=== PATIENT | male | born 2000 | race Caucasian/White ===

== ENCOUNTER 2019-08-22 10:53 | Inpatient (IN) | payer BC ==
[2019-08-22] MEDS ORDERED: Ondansetron PF 4 MG/2 ML Vial ONE (11:03)
[2019-08-22] MEDS ORDERED: Ondansetron ODT 4 MG TAB ONE (11:04)
[2019-08-22] MEDS ORDERED: Midazolam HCl 5 mg/ml Vial ONE ×2 (12:09→12:15)
[2019-08-22] MEDS ORDERED: Haloperidol Lactate 5 MG/ML VIAL ONE (12:22)
[2019-08-22] MEDS ORDERED: diphenhydrAMINE 50 MG/ML VIAL ONE (12:22)
[2019-08-22] MEDS ORDERED: Lorazepam 2 MG/ML VIAL ONE (12:24)
[2019-08-22] MEDS ORDERED: Ketamine 50 MG/ML (10ML VIAL) ONE (12:27)
[2019-08-22] MEDS ORDERED: Rocuronium Bromide 10 MG/ML (10ML VIAL) ONE (12:28)
[2019-08-22] MEDS ORDERED: Rocuronium Bromide 50 MG/5 ML VIAL ONE (12:29)
[2019-08-22 12:49] LABS: #Basophils 0.1 thou/uL (0.0-0.2); #Eosinphils 0.1 thou/uL (0.0-0.7); #Lymphocytes 3.5 thou/uL (1.20-3.40); #Monocytes 1.1 thou/uL (0.11-0.59); #Neutrophils 9.3 thou/uL (1.40-6.50); %Eosinophils 0.5 % (0.0-10.0); %Lymphocytes 24.9 % (28.0-48.0); %Monocytes 8.1 % (0.0-4.0); %Neutrophils 65.6 % (31.0-61.0); Hemoglobin 15.1 g/dL (14.0-18.0); Mean Corpuscular HGB CONC 33.7 g/dL (32.0-36.0); Mean Corpuscular Hemoglobin 33.3 pg (25.0-35.0); Mean Corpuscular Volume 98.8 fL (78.0-98.0); Mean Platelet Volume 7.2 fL (7.4-10.4); Platelet Count 303 thou/uL (130-400); RBC Distribution Width 11.6 % (11.5-14.5); Red Blood Cell (RBC) Count 4.52 mill/uL (4.00-5.20); White Blood Cell (WBC) Count 14.1 thou/uL (4.8-10.8)
[2019-08-22 13:11] LABS: ALT (SGPT) 16 U/L (8-55); AST (SGOT) 20 U/L (5-34); Alkaline Phosphatase 107 U/L (50-130); Anion Gap 30 mmol/L (10-20); BUN (Urea Nitrogen) 9 mg/dL (8.9-20.6); Bilirubin, Total 0.8 mg/dL (0.2-1.2); Calc. Creatinine Clearance 0 mL/min (70-130); Calcium 9.9 mg/dL (7.8-10.44); Carbon Dioxide 11 mmol/L (22-29); Chloride 101 mmol/L (98-107); Estimated GFR-MDRD 73; Globulin 2.9 g/dL (2.4-3.5); Glucose 206 mg/dL (70-105); Potassium 3.1 mmol/L (3.5-5.1); Protein, Total 7.9 g/dL (6.0-8.3); Sodium 139 mmol/L (136-145)
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
[2019-08-22 14:14] LABS: Medtox Reader # READER 4
[2019-08-22 14:15] LABS: Amphetamine Not Detected (NotDetected); Barbiturates Screen Not Detected (NotDetected); Benzodiazepine Screen Not Detected (NotDetected); Cocaine Metabolite Screen Detected (NotDetected); Medtox Control Line Valid? VALID (VALID); Methadone Not Detected (NotDetected); Methamphetamine Not Detected (NotDetected); Opiate Screen Not Detected (NotDetected); Oxycodone Screen Not Detected (NotDetected); Phencyclidine (PCP) Not Detected (NotDetected); THC/Cannabinoid Screen Detected (NotDetected); Tricyclic Screen Not Detected (NotDetected)
[2019-08-22 14:18] LABS: Bacteria/HPF None Seen HPF (None Seen); Bilirubin Negative (Negative); Blood, Urine 1+ (Negative); Clarity Clear (Clear); Glucose, Urine (Dipstick) Normal (Negative); Leukocyte Negative Leu/uL (Negative); Mucous/LPF 1+ LPF (<2+); Nitrite Negative (Negative); Protein, Urine (Dipstick) 100 mg/dL (Neg-Trace); RBC/HPF 0-3 HPF (0-3); Squamous Epithelial None Seen HPF (0-3); Urobilinogen Normal mg/dL (Less than 2); WBC/HPF 0-3 HPF (0-3)
[2019-08-22 15:13] LABS: Acetaminophen Less than 6.0 mcg/mL (10.0-30.0); Alcohol Less than 10 mg/dL (Less than 10); Salicylate Less than 8.0 mg/dL (15.0-30.0)
[2019-08-22] MEDS ORDERED: Lorazepam 2 MG/ML VIAL SLOW IVP PRN (17:34)
[2019-08-22] MEDS ORDERED: Midazolam HCl 2 mg/2 ml Vial SLOW IVP PRN (17:34)
[2019-08-22] MEDS ORDERED: Lacosamide 200 MG in Sodium Chloride 0.9% 50 ML IVPB SCH (19:15)
[2019-08-22] MEDS ORDERED: Lactated Ringer's 1,000 ML IV SCH (23:06)
[2019-08-23] MEDS: Lactated Ringer's 1,000 ML IV SCH ×2 (00:04→08:35)
[2019-08-23 05:02] LABS: #Basophils 0.1 thou/uL (0.0-0.2); #Lymphocytes 1.4 thou/uL (1.20-3.40); #Monocytes 0.8 thou/uL (0.11-0.59); #Neutrophils 5.5 thou/uL (1.40-6.50); %Basophils 0.8 % (0.0-1.0); %Eosinophils 0.5 % (0.0-10.0); %Lymphocytes 18.4 % (28.0-48.0); %Monocytes 10.1 % (0.0-4.0); %Neutrophils 70.2 % (31.0-61.0); Hemoglobin 13.9 g/dL (14.0-18.0); Mean Corpuscular HGB CONC 34.6 g/dL (32.0-36.0); Mean Corpuscular Hemoglobin 33.8 pg (25.0-35.0); Mean Corpuscular Volume 97.5 fL (78.0-98.0); Mean Platelet Volume 7.1 fL (7.4-10.4); Platelet Count 228 thou/uL (130-400); RBC Distribution Width 11.6 % (11.5-14.5); Red Blood Cell (RBC) Count 4.11 mill/uL (4.00-5.20); White Blood Cell (WBC) Count 7.8 thou/uL (4.8-10.8)
[2019-08-23 05:31] LABS: Anion Gap 10 mmol/L (10-20); BUN (Urea Nitrogen) 6 mg/dL (8.9-20.6); Calc. Creatinine Clearance 136 mL/min (70-130); Calcium 9.4 mg/dL (7.8-10.44); Carbon Dioxide 28 mmol/L (22-29); Chloride 104 mmol/L (98-107); Estimated GFR-MDRD Greater than 90; Glucose 77 mg/dL (70-105); Sodium 138 mmol/L (136-145)
--- NOTE | 2019-08-23 06:03 | PDOC.FM ---
- Subjective Subjective: Pt is doing well. He has not had seizure activity. He states he is back to baseline. He can remember most the events yesterday except for what happened during the seizure and post-ictal states. - Objective Vital Signs & Weight: Vital Signs (12 hours) Temp Pulse Resp BP Pulse Ox 08/23/19 00:00 98.7 F 65 16 111/64 96 08/22/19 20:25 99.0 F 84 16 124/79 100 Weight Weight 78.88 kg Result Diagrams: 08/23/19 04:49 08/23/19 04:49 Phys Exam - Physical Examination Constitutional: NAD Respiratory: no wheezing, clear to auscultation bilateral Cardiovascular: RRR, no significant murmur Gastrointestinal: soft, non-tender, no distention Musculoskeletal: no edema, pulses present Neurological: non-focal, normal sensation CN II-XII intact Dx/Plan (1) Epilepsy Code(s): G40.909 - EPILEPSY, UNSP, NOT INTRACTABLE, WITHOUT STATUS EPILEPTICUS Status: Acute (2) Cocaine use Code(s): F14.90 - COCAINE USE, UNSPECIFIED, UNCOMPLICATED Status: Acute (3) Marijuana use Code(s): F12.90 - CANNABIS USE, UNSPECIFIED, UNCOMPLICATED Status: Acute (4) Hypokalemia Code(s): E87.6 - HYPOKALEMIA Status: Acute (5) Post-ictal confusion Code(s): F05 - DELIRIUM DUE TO KNOWN PHYSIOLOGICAL CONDITION Status: Acute - Plan Plan: Pt is a 19 year old male with PMH significant for epilepsy who presented to the emergency department with one seizure and while being observed had a second seizure. # Acute Seizure with History of Epilepsy - mentation improved Pt had 2 seizures this afternoon. He has history of epilepsy with first episode 4 years ago. Pt is currently seen by Dr. Marin in [place], [place]. He was started on Briviact 100 mg PO BID, Vimpat 200 mg BID in the outpt setting. Cocaine positive, late night studying for finals likely exacerbated events. He became aggressive during his post-ictal state requiring multiple medications. Day 2 pt is doing well. Will discuss on rounds, hopeful for discharge today with close follow up to neurology. - Continue home meds tonight - Ativan, Versed prn - 2 L bolused; LR 125 mls/hr for kidney protection; monitor kidney function - Serum drug screen neg for alcohol # Leukocytosis - likely stress reaction from seizure activity - UA, Procal pending # Cocaine Use # Marijuana Use Fluids: LR 125 mls/hr Diet: NPO VTE Prophylaxis: SCD's Code Status: Full Dispo: admit overnight for monitoring
[2019-08-23] MEDS: Lacosamide 50 mg Tablet PO SCH ×2 (08:24→08:43)
[2019-08-23] MEDS ORDERED: Brivaracetam [Briviact] 100 MG PO SCH (09:00)
[2019-08-23] MEDS ORDERED: FLU VACC QS2019-20(6MOS UP)/PF 60 MCG/0.5 ML SYRINGE IM ONE (21:00)
== END 2019-08-23 12:40 | disposition home or self-care (01) | DRG 918 ==
LOC: ERS 10:53 → ERHOLD 16:22 → 2SE 20:28
PROVIDERS: ADMIT Student in an Organized Health Care Education/Training Program; ATTEND Student in an Organized Health Care Education/Training Program
DX: T40.5X1A Poisoning by cocaine, accidental (unintentional), initial encounter (principal); F14.10 Cocaine abuse, uncomplicated; F12.10 Cannabis abuse, uncomplicated; G40.409 Other generalized epilepsy and epileptic syndromes, not intractable, without status epilepticus; E87.6 Hypokalemia; D72.829 Elevated white blood cell count, unspecified; Z79.899 Other long term (current) drug therapy
CPT/HCPCS: 36415; 51701; 80048; 80053; 80306; 80307; 81003; 81015; 84145; 85025; 94760; 96361; 96372; 96374; 96375; J1200; J1630; J2060; J2250; J2405; Q0162